=== PATIENT | male | born 1995 | race Caucasian/White ===

== ENCOUNTER 2021-09-17 23:50 | Emergency (ER) | payer OTHER | END 2021-09-18 00:44 | disposition home or self-care (01) | LOC: ER1 23:50 | DX: S81.811A Laceration without foreign body, right lower leg, initial encounter (principal); Z23 Encounter for immunization; W26.8XXA Contact with other sharp object(s), not elsewhere classified, initial encounter; Y92.009 Unspecified place in unspecified non-institutional (private) residence as the place of occurrence of the external cause | CPT/HCPCS: 12002; 90471; 90714; 99283 ==

== ENCOUNTER 2021-09-29 22:17 | Emergency (ER) | payer OTHER | END 2021-09-29 22:56 | disposition home or self-care (01) | LOC: ER1 22:17 | DX: S81.811D Laceration without foreign body, right lower leg, subsequent encounter (principal); X58.XXXD Exposure to other specified factors, subsequent encounter | CPT/HCPCS: 99281 ==

== ENCOUNTER 2021-11-01 23:15 | Emergency (ER) | payer OTHER | END 2021-11-02 01:10 | disposition left against medical advice (07) | LOC: ER1 23:15 | DX: Z53.21 Procedure and treatment not carried out due to patient leaving prior to being seen by health care provider (principal) ==